=== PATIENT | male | born 1955 ===

== ENCOUNTER 2017-02-16 07:22 | Inpatient (IN) | payer MEDICARE ==
[2017-02-16] MEDS ORDERED: Insulin Detemir 100 Units/ml Inj SC STA (08:57)
[2017-02-16] MEDS ORDERED: Insulin Detemir 100 Units/ml Inj SC ONE (09:00)
[2017-02-16 09:27] VITALS: BMI 30.9
[2017-02-16] MEDS ORDERED: Propofol 10 mg/ml Inj (20 ML) ONE (09:44)
[2017-02-16] MEDS ORDERED: Succinylcholine 200 mg/10 ml Inj IV ONE (09:44)
[2017-02-16] MEDS ORDERED: EPINEPHrine 1 mg/ml (1:1000) Inj ONE ×2 (09:54→12:28)
[2017-02-16] MEDS ORDERED: Bupivacaine 0.5% Inj(30mL) ONE ×2 (09:54→12:28)
[2017-02-16] MEDS ORDERED: Morphine 1 mg/ml preservative-free Inj(Duramorph) ONE (09:54)
[2017-02-16] MEDS ORDERED: Sodium Chloride 0.9% 20 ML IV ONE (09:55)
[2017-02-16] MEDS ORDERED: Sodium Bicarbonate 4.2% Inj (Infant) ONE (09:55)
[2017-02-16] MEDS ORDERED: Midazolam 2 MG/2 ML VIAL ONE (10:20)
[2017-02-16] MEDS ORDERED: Rocuronium 10 mg/ml (5 ml) ONE (10:20)
[2017-02-16] MEDS ORDERED: Dexamethasone 4 mg/1 ml ONE (10:21)
[2017-02-16] MEDS ORDERED: Lidocaine 2% Jelly (Uro-Jet) ONE (10:25)
[2017-02-16] MEDS ORDERED: Albuterol HFA 90 mcg/actuation (8 g) ONE (10:27)
[2017-02-16] MEDS ORDERED: Lactated Ringer's 1,000 ML IV ONE ×2 (10:55→14:55)
[2017-02-16] MEDS ORDERED: Sodium Chloride 0.9% Inj (10mL) IV ONE (12:38)
[2017-02-16] MEDS ORDERED: EPINEPHrine 1 mg/ml (1:1000) Inj IV ONE (12:38)
[2017-02-16] MEDS ORDERED: Bupivacaine 0.5% 50 ML IJ ONE (12:38)
--- NOTE | 2017-02-16 13:13 | PCM.SURG1 ---
Surgeon's Initial Post Op Note - Surgeon's Notes Surgeon: Verónica Egan MD Purchase Analyst: AURELIA Helm Pre-Operative Diagnosis: Right Knee Osteoarthritis Operative Findings: see op report Post-Operative Diagnosis: same as pre-op dx Operation Performed: R TKR Specimen/Specimens Removed: Right knee bone and soft tissue Estimated Blood Loss: EBL {In ML}: 150 Date of Surgery/Procedure: 02/16/17 Time of Surgery/Procedure: 10:45
[2017-02-16] MEDS ORDERED: Oxycodone/Acetaminophen 5/325 mg Tab PO PRN (13:16)
[2017-02-16] MEDS ORDERED: Insulin Lispro (humaLOG) 100 Units/ml Inj SC STA (13:23)
[2017-02-16] MEDS: HYDROmorphone 0.5 mg/0.5 ml ISec IVP PRN ×5 (13:35→14:49)
[2017-02-16] MEDS: Insulin Regular 100 units/ml SC ONE ×2 (14:27→19:05)
--- NOTE | 2017-02-16 14:40 | RAD ---
PROCEDURE: Right Knee Radiographs. HISTORY: s/p RTKR COMPARISON: None. FINDINGS: BONES: Patient status post right total knee replacement with hardware in adequate apparent position. No subluxation or dislocation is appreciated with distal femoral and proximal tibial replacement hardware unremarkable appearing. Skin ascencion noted anteriorly with limited anterior knee postoperative changes noted. JOINTS: Status post total knee replacement. JOINT EFFUSION: None. OTHER FINDINGS: None. IMPRESSION: Status post total knee replacement hardware with limited postoperative change identified predominating anteriorly. No acute fracture or dislocation.
[2017-02-16] MEDS ORDERED: Albuterol 0.083% Inhal Sol (2.5 mg/3 mL) UD IH PRN (14:51)
[2017-02-16] MEDS ORDERED: ceFAZolin 1 GM in Sodium Chloride 0.9% 100 ML IVPB ONE (19:00)
[2017-02-16] MEDS: Lactated Ringer's 1,000 ML IV SCH ×3 (19:08→23:10)
[2017-02-16] MEDS: oxyCODONE 10 mg ER Tab (oxyCONTIN) PO SCH (21:29)
[2017-02-17] MEDS ORDERED: ceFAZolin 1 GM in Sodium Chloride 0.9% 100 ML IVPB ONE (03:00)
[2017-02-17 07:32] LABS: BLOOD UREA NITROGEN 17 mg/dl (9-20); CALCIUM 9.1 mg/dL (8.4-10.2); GFR AFRICAN-AMERICAN > 60; GFR NON-AFRICAN AMERICAN > 60
[2017-02-17 07:33] LABS: BASO % 0.1 % (0.0-2.0); EOS # 0.1 K/uL (0.0-0.7); EOS % 0.7 % (0.0-4.0); HEMOGLOBIN 12.7 g/dL (12.0-18.0); LYMPH # 1.8 K/uL (1.0-4.3); LYMPH % 23.9 % (20.0-40.0); MEAN CELL VOLUME 88.1 fl (80.0-94.0); MEAN CORPUSCULAR HGB CONC 34.1 g/dL (33.0-37.0); MEAN PLATELET VOLUME 8.9 fl (7.2-11.7); MONO # 0.8 K/uL (0.0-0.8); MONO % 10.2 % (0.0-10.0); NEUT # 4.9 K/uL (1.8-7.0); NEUT % 65.1 % (50.0-75.0); NRBC % 0.1 % (0.0-0.0); RBC 4.24 Mil/uL (4.40-5.90); RED CELL DISTRIBUTION WIDTH 14.2 % (11.5-14.5); WHITE BLOOD COUNT 7.6 K/uL (4.8-10.8)
--- NOTE | 2017-02-17 08:58 | CP.PCM.PN ---
Subjective - Date & Time of Evaluation Date of Evaluation: 02/17/17 Time of Evaluation: 08:30 - Subjective Subjective: S/P RTKR POD#1 Pt seen and examined at bedside, comfortable in bed Pt c/o mild right knee pain, currently well controlled with pain meds Pt denies any SOB, chest pain, N/V/D, numbness/tingling RLE Objective - Vital Signs/Intake and Output Vital Signs (last 24 hours): Temp Pulse Resp BP Pulse Ox 98.3 F 73 20 100/63 97 02/17/17 07:47 02/17/17 07:47 02/17/17 07:47 02/17/17 07:47 02/17/17 07:47 - Medications Medications: Current Medications Acetaminophen (Tylenol 325mg Tab) 325 mg PO Q4 PRN PRN Reason: pain1-3 Albuterol Sulfate (Albuterol 0.083% Inhal Angelica (2.5 Mg/3 Ml) Ud) 2.5 mg IH Q6 PRN PRN Reason: Shortness of Breath Celecoxib (Celebrex) 200 mg PO Q12 [facility] Last Admin: 02/16/17 21:29 Dose: 200 mg Docusate Sodium (Colace) 100 mg PO TID [facility] Last Admin: 02/16/17 19:06 Dose: 100 mg Enoxaparin Sodium (Lovenox) 30 mg SC Q12 [facility] PRN Reason: Protocol Escitalopram Oxalate (Lexapro) 20 mg PO DAILY [facility] Lactated Ringer's (Lactated Ringer's) 1,000 mls @ 100 mls/hr IV .Q10H [facility] Last Admin: 02/16/17 23:10 Dose: Not Given Insulin Detemir (Levemir) 5 units SC QAM [facility] Ketorolac Tromethamine (Toradol) 15 mg IM Q8 [facility] Stop: 03/02/17 19:00 Last Admin: 02/17/17 01:24 Dose: 15 mg Metformin HCl (Glucophage) 500 mg PO ACD [facility] Last Admin: 02/16/17 20:35 Dose: 500 mg Metformin HCl (Glucophage) 1,000 mg PO DAILY [facility] Metoprolol Tartrate (Lopressor) 25 mg PO DAILY [facility] Oxycodone HCl (Oxycontin Extended Release Tab) 10 mg PO Q12 [facility] Stop: 03/02/17 21:01 Last Admin: 02/16/17 21:29 Dose: 10 mg Oxycodone/Acetaminophen (Percocet 5/325 Mg Tab) 1 tab PO Q4 PRN PRN Reason: pain4-6 Stop: 02/19/17 13:17 Pantoprazole Sodium (Protonix Ec Tab) 40 mg PO QAM [facility] Sitagliptin Phosphate (Januvia) 50 mg PO DAILY [facility] Valsartan (Diovan) 80 mg PO DAILY [facility] - Labs Labs: 02/17/17 06:35 02/17/17 06:35 - Constitutional Appears: Well, No Acute Distress - Respiratory Exam Respiratory Exam: Clear to Ausculation Bilateral, NORMAL BREATHING PATTERN - Cardiovascular Exam Cardiovascular Exam: REGULAR RHYTHM, RRR - Extremities Exam Additional comments: RLE: Knee dressing C/D/I Calves soft and compressible, +TTP right calf, no TTP left calf N/V intact distally Distal pulses wnl No foot drop Assessment and Plan - Assessment and Plan (Free Text) Assessment: 61 yo M s/p RTKR POD#1 Plan: 61 yo M s/p RTKR POD#1 Pain Control Abx to be stopped within 24hrs post op DVT ppx- start lovenox today B/L LE US to r/o DVT RLE Incentive Spirometer PT/OT WBAT RLE F/U labs Discussed with Dr. Egan
[2017-02-17] MEDS ORDERED: Patient's Own Med (Sitagliptin Phos/Metformin Hcl [Janumet 50-1,000 Mg Tablet] 1 TAB) PO SCH (09:00)
--- NOTE | 2017-02-17 09:14 | CP.PCM.CON ---
History of Present Illness - History of Present Illness History of Present Illness: 61 y/o male with PMHx of HTN, DM type admitted to [facility] yesterday after right total knee replacement by Dr. Egan. Patient is s/p RTKR POD #1. Patient states that pain is well controlled with pain medications. Denies chest pain, SOB, N/V, abdominal pain. Patient is passing flatus, but has not had yet a bowel movements. Tolerating PO. Review of Systems - Review of Systems All systems: reviewed and no additional remarkable complaints except Past Patient History - Infectious Disease Hx of Infectious Diseases: None - Past Medical History & Family History Past Medical History?: Yes - Past Social History Smoking Status: Never Smoked - CARDIAC Hx Cardiac Disorders: Yes Hx Hypercholesterolemia: Yes Hx Hypertension: Yes - PULMONARY Hx Respiratory Disorders: No Hx Asthma: Yes Hx Bronchitis: Yes Hx Chronic Obstructive Pulmonary Disease (COPD): Yes - NEUROLOGICAL Hx Neurological Disorder: No Hx Paralysis: No - HEENT Hx HEENT Problems: No - RENAL Hx Chronic Kidney Disease: No - ENDOCRINE/METABOLIC Hx Endocrine Disorders: Yes Hx Diabetes Mellitus Type 2: Yes - HEMATOLOGICAL/ONCOLOGICAL Hx Blood Disorders: No Hx Blood Transfusions: No - INTEGUMENTARY Hx Dermatological Problems: No - MUSCULOSKELETAL/RHEUMATOLOGICAL Hx Musculoskeletal Disorders: Yes Hx Arthritis: Yes Hx Falls: No Hx Osteoarthritis: Yes - GASTROINTESTINAL Hx Gastrointestinal Disorders: Yes Other/Comment: [email or web address] - GENITOURINARY/GYNECOLOGICAL Hx Genitourinary Disorders: No Other/Comment: 06/2016 circumcision - PSYCHIATRIC Hx Emotional Abuse: No Hx Physical Abuse: No - SURGICAL HISTORY Hx Surgeries: Yes 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) Hx Herniorrhaphy: Yes (UMBILICAL HERNIA) Hx Joint Replacement: Yes (LEFT TOTAL KNEE REPLACEMENT 2013) Hx Orthopedic Surgery: Yes (left knee replacement) Other/Comment: RIGHT 5TH FINGER AMPUTED - ANESTHESIA Hx Anesthesia: Yes Hx Anesthesia Reactions: No Hx Malignant Hyperthermia: No Has any member of the family had a problem w/ anesthesia?: No Meds Allergies/Adverse Reactions: Allergies Allergy/AdvReac Type Severity Reaction Status Date / Time No Known Allergies Allergy Verified 06/29/16 00:49 - Medications Medications: Current Medications Acetaminophen (Tylenol 325mg Tab) 325 mg PO Q4 PRN PRN Reason: pain1-3 Albuterol Sulfate (Albuterol 0.083% Inhal Angelica (2.5 Mg/3 Ml) Ud) 2.5 mg IH Q6 PRN PRN Reason: Shortness of Breath Celecoxib (Celebrex) 200 mg PO Q12 [facility] Last Admin: 02/16/17 21:29 Dose: 200 mg Docusate Sodium (Colace) 100 mg PO TID [facility] Last Admin: 02/16/17 19:06 Dose: 100 mg Enoxaparin Sodium (Lovenox) 30 mg SC Q12 [facility] PRN Reason: Protocol Escitalopram Oxalate (Lexapro) 20 mg PO DAILY [facility] Lactated Ringer's (Lactated Ringer's) 1,000 mls @ 100 mls/hr IV .Q10H [facility] Last Admin: 02/16/17 23:10 Dose: Not Given Insulin Detemir (Levemir) 5 units SC QAM [facility] Ketorolac Tromethamine (Toradol) 15 mg IM Q8 [facility] Stop: 03/02/17 19:00 Last Admin: 02/17/17 01:24 Dose: 15 mg Metformin HCl (Glucophage) 500 mg PO ACD [facility] Last Admin: 02/16/17 20:35 Dose: 500 mg Metformin HCl (Glucophage) 1,000 mg PO DAILY [facility] Metoprolol Tartrate (Lopressor) 25 mg PO DAILY [facility] Oxycodone HCl (Oxycontin Extended Release Tab) 10 mg PO Q12 [facility] Stop: 03/02/17 21:01 Last Admin: 02/16/17 21:29 Dose: 10 mg Oxycodone/Acetaminophen (Percocet 5/325 Mg Tab) 1 tab PO Q4 PRN PRN Reason: pain4-6 Stop: 02/19/17 13:17 Pantoprazole Sodium (Protonix Ec Tab) 40 mg PO QAM [facility] Sitagliptin Phosphate (Januvia) 50 mg PO DAILY [facility] Valsartan (Diovan) 80 mg PO DAILY [facility] Physical Exam - Constitutional Appears: No Acute Distress - Eye Exam Eye Exam: Normal appearance - ENT Exam ENT Exam: Mucous Membranes Moist - Respiratory Exam Respiratory Exam: Clear to Auscultation Bilateral, NORMAL BREATHING PATTERN - Cardiovascular Exam Cardiovascular Exam: REGULAR RHYTHM, +S1, +S2 - GI/Abdominal Exam GI & Abdominal Exam: Normal Bowel Sounds, Soft. absent: Guarding, Rigid, Tenderness - Extremities Exam Additional comments: Knee dressing C/D/I Calves soft and compressible, +TTP right calf, no TTP left calf N/V intact distally Distal pulses wnl - Neurological Exam Neurological exam: Alert, Oriented x3 - Psychiatric Exam Psychiatric exam: Normal Affect, Normal Mood - Skin Skin Exam: Dry, Intact, Normal Color Results - Vital Signs Recent Vital Signs: Last Vital Signs Temp 98.3 F 02/17/17 07:47 Pulse 73 02/17/17 07:47 Resp 20 02/17/17 07:47 BP 100/63 02/17/17 07:47 Pulse Ox 97 02/17/17 07:47 - Labs Result Diagrams: 02/17/17 06:35 02/17/17 06:35 Labs: Laboratory Results - last 24 hr 02/16/17 02/16/17 02/16/17 07:45 09:45 13:14 WBC RBC Hgb Hct MCV MCH MCHC RDW Plt Count MPV Neut % (Auto) Lymph % (Auto) [place] % (Auto) Eos % (Auto) Baso % (Auto) Neut # Lymph # [place] # Eos # Baso # Sodium Potassium Chloride Carbon Dioxide Anion Gap BUN Creatinine Est GFR ( Amer) Est GFR (Non-Af Amer) POC Glucose (mg/dL) 248 H 250 H Random Glucose Calcium Blood Type A POSITIVE Antibody Screen Negative 02/16/17 02/17/17 02/17/17 21:19 06:35 06:35 WBC 7.6 RBC 4.24 L Hgb 12.7 Hct 37.3 MCV 88.1 MCH 30.0 MCHC 34.1 RDW 14.2 Plt Count 135 MPV 8.9 Neut % (Auto) 65.1 Lymph % (Auto) 23.9 [place] % (Auto) 10.2 H Eos % (Auto) 0.7 Baso % (Auto) 0.1 Neut # 4.9 Lymph # 1.8 [place] # 0.8 Eos # 0.1 Baso # 0.0 Sodium 138 Potassium 4.0 Chloride 104 Carbon Dioxide 25 Anion Gap 12 BUN 17 Creatinine 1.1 Est GFR ( Amer) > 60 Est GFR (Non-Af Amer) > 60 POC Glucose (mg/dL) 308 H Random Glucose 226 H Calcium 9.1 Blood Type Antibody Screen 02/17/17 06:41 WBC RBC Hgb Hct MCV MCH MCHC RDW Plt Count MPV Neut % (Auto) Lymph % (Auto) [place] % (Auto) Eos % (Auto) Baso % (Auto) Neut # Lymph # [place] # Eos # Baso # Sodium Potassium Chloride Carbon Dioxide Anion Gap BUN Creatinine Est GFR ( Amer) Est GFR (Non-Af Amer) POC Glucose (mg/dL) 239 H Random Glucose Calcium Blood Type Antibody Screen Assessment & Plan - Assessment and Plan (Free Text) Assessment: S/P RTKR POD #1 Plan: S/P RTKR POD #1 c/w Pain Control discontinued Abx within 24hrs post op f/u B/L LE US to r/o DVT RLE Incentive Spirometer PT evaluation F/U labs Hypertension C/w current management Diabetes Mellitus type 2 c/w home medications DVT prophylaxis consider start DVT ppx with lovenox today - Date & Time Date: 02/17/17 Time: 08:25
[2017-02-17] MEDS: Pantoprazole 40 mg EC Tab PO SCH (10:15)
[2017-02-17] MEDS: Insulin Detemir 100 Units/ml Inj SC SCH (10:21)
[2017-02-17] MEDS: oxyCODONE 10 mg ER Tab (oxyCONTIN) PO SCH ×2 (11:29→21:27)
[2017-02-17] MEDS: Lactated Ringer's 1,000 ML IV SCH ×2 (11:30→20:08)
--- NOTE | 2017-02-17 11:36 | US ---
PROCEDURE: Bilateral lower extremity venous duplex Doppler. HISTORY: pain in R calf; S/P R TKR 02/16/2017 COMPARISON: None available. TECHNIQUE: Bilateral common femoral, superficial femoral, popliteal and posterior tibial veins were evaluated. Flow was assessed with color Doppler, compressibility, assessment of phasic flow and augmentation response. FINDINGS: COMMON FEMORAL VEIN: Right CFV: Unremarkable. Left CFV: Unremarkable. SUPERFICIAL FEMORAL VEIN: Right SFV: Unremarkable. Left SFV: Unremarkable. POPLITEAL VEIN: Right Popliteal: Unremarkable. Left Popliteal: Unremarkable. POSTERIOR TIBIAL VEIN: Right PTV: Unremarkable. Left PTV: Unremarkable. OTHER FINDINGS: None. IMPRESSION: No evidence of deep venous thrombosis.
[2017-02-17] MEDS: Enoxaparin 30 mg Syringe SC SCH ×2 (14:05→21:57)
[2017-02-18 07:09] LABS: BASO % 0.3 % (0.0-2.0); EOS # 0.1 K/uL (0.0-0.7); EOS % 1.7 % (0.0-4.0); HEMOGLOBIN 11.3 g/dL (12.0-18.0); LYMPH # 1.2 K/uL (1.0-4.3); LYMPH % 23.6 % (20.0-40.0); MEAN CELL VOLUME 88.2 fl (80.0-94.0); MEAN CORPUSCULAR HEMOGLOBIN 29.6 pg (27.0-31.0); MEAN CORPUSCULAR HGB CONC 33.5 g/dL (33.0-37.0); MEAN PLATELET VOLUME 8.7 fl (7.2-11.7); MONO # 0.7 K/uL (0.0-0.8); MONO % 13.8 % (0.0-10.0); NEUT # 3.2 K/uL (1.8-7.0); NEUT % 60.6 % (50.0-75.0); RBC 3.81 Mil/uL (4.40-5.90); RED CELL DISTRIBUTION WIDTH 14.1 % (11.5-14.5); WHITE BLOOD COUNT 5.3 K/uL (4.8-10.8)
[2017-02-18 07:21] LABS: BLOOD UREA NITROGEN 13 mg/dl (9-20); CALCIUM 8.8 mg/dL (8.4-10.2); GFR AFRICAN-AMERICAN > 60; GFR NON-AFRICAN AMERICAN > 60
[2017-02-18] MEDS: Enoxaparin 30 mg Syringe SC SCH ×2 (08:30→21:56)
[2017-02-18] MEDS: Pantoprazole 40 mg EC Tab PO SCH (08:33)
[2017-02-18] MEDS: Insulin Detemir 100 Units/ml Inj SC SCH (08:34)
[2017-02-18] MEDS: Lactated Ringer's 1,000 ML IV SCH ×2 (08:38→15:59)
[2017-02-18] MEDS: oxyCODONE 10 mg ER Tab (oxyCONTIN) PO SCH ×2 (08:47→21:56)
[2017-02-18 15:56] VITALS: O2SAT 97
[2017-02-19 01:02] VITALS: RESP 20
--- NOTE | 2017-02-19 06:57 | CP.PCM.DIS ---
Provider - Provider Date of Admission: 02/16/17 13:19 Attending physician: Terry Guzman MD Primary care physician: Adi Rao MD Time Spent in preparation of Discharge (in minutes): 30 Diagnosis - Discharge Diagnosis (1) Status post total right knee replacement Status: Acute Comment: POD #2. c/w pain control. c/w DVT prophylaxis. Transfer to TCU (2) Hypertension Status: Chronic Priority: Medium (3) Diabetes type 2, controlled Status: Chronic Priority: Medium Hospital Course - Lab Results Lab Results: Most Recent Lab Values WBC 5.3 K/uL (4.8-10.8) 02/18/17 06:25 RBC 3.81 Mil/uL (4.40-5.90) L 02/18/17 06:25 Hgb 11.3 g/dL (12.0-18.0) L 02/18/17 06:25 Hct 33.6 % (35.0-51.0) L 02/18/17 06:25 MCV 88.2 fl (80.0-94.0) 02/18/17 06:25 MCH 29.6 pg (27.0-31.0) 02/18/17 06:25 MCHC 33.5 g/dL (33.0-37.0) 02/18/17 06:25 RDW 14.1 % (11.5-14.5) 02/18/17 06:25 Plt Count 119 K/uL (130-400) L 02/18/17 06:25 MPV 8.7 fl (7.2-11.7) 02/18/17 06:25 Neut % (Auto) 60.6 % (50.0-75.0) 02/18/17 06:25 Lymph % (Auto) 23.6 % (20.0-40.0) 02/18/17 06:25 Carson % (Auto) 13.8 % (0.0-10.0) H 02/18/17 06:25 Eos % (Auto) 1.7 % (0.0-4.0) 02/18/17 06:25 Baso % (Auto) 0.3 % (0.0-2.0) 02/18/17 06:25 Neut # 3.2 K/uL (1.8-7.0) 02/18/17 06:25 Lymph # 1.2 K/uL (1.0-4.3) 02/18/17 06:25 Carson # 0.7 K/uL (0.0-0.8) 02/18/17 06:25 Eos # 0.1 K/uL (0.0-0.7) 02/18/17 06:25 Baso # 0.0 K/uL (0.0-0.2) 02/18/17 06:25 Sodium 137 mmol/l (132-148) 02/18/17 06:25 Potassium 3.8 MMOL/L (3.6-5.0) 02/18/17 06:25 Chloride 103 mmol/L (98-107) 02/18/17 06:25 Carbon Dioxide 27 mmol/L (22-30) 02/18/17 06:25 Anion Gap 10 (10-20) 02/18/17 06:25 BUN 13 mg/dl (9-20) 02/18/17 06:25 Creatinine 1.0 mg/dL (0.8-1.5) 02/18/17 06:25 Est GFR ( Amer) > 60 02/18/17 06:25 Est GFR (Non-Af Amer) > 60 02/18/17 06:25 POC Glucose (mg/dL) 269 mg/dL (65-110) H 02/19/17 05:09 Random Glucose 274 mg/dL (75-110) H 02/18/17 06:25 Calcium 8.8 mg/dL (8.4-10.2) 02/18/17 06:25 Blood Type A POSITIVE 02/16/17 07:45 Antibody Screen Negative 02/16/17 07:45 BBK History Checked Patient has bt 02/16/17 07:45 - Hospital Course Hospital Course: S/P RTKR doing well in POD #2 Transfer to TCU to c/w rehabilitation - Date & Time of H&P Date of H&P: 02/16/17 Time of H&P: 13:00 Discharge Exam - ENT Exam ENT Exam: Mucous Membranes Moist - Respiratory Exam Respiratory Exam: Clear to PA & Lateral, NORMAL BREATHING PATTERN - Cardiovascular Exam Cardiovascular Exam: REGULAR RHYTHM, +S1, +S2 - GI/Abdominal Exam GI & Abdominal Exam: Normal Bowel Sounds, Soft. absent: Guarding, Rigid, Tenderness - Extremities Exam Extremities exam: normal inspection Additional comments: no edema, no calf tenderness - Neurological Exam Neurological exam: Alert, Oriented x3 - Psychiatric Exam Psychiatric exam: Normal Affect, Normal Mood - Skin Skin Exam: Dry, Intact, Normal Color Discharge Plan - Follow Up Plan Condition: GOOD Disposition: REHAB FACILITY/REHAB UNIT Instructions: Joint Replacement Surgery (DC) Additional Instructions: pt. cleared for d/c to TCU today by and cont. PT/OT cont. current meds Referrals: Verónica Egan MD [Staff Provider] - Terry Guzman MD [Staff Provider] - Adi Rao MD [Primary Care Provider] -
[2017-02-19 07:33] LABS: BASO % 0.3 % (0.0-2.0); EOS # 0.1 K/uL (0.0-0.7); EOS % 2.8 % (0.0-4.0); HEMOGLOBIN 9.8 g/dL (12.0-18.0); LYMPH # 1.3 K/uL (1.0-4.3); LYMPH % 25.5 % (20.0-40.0); MEAN CELL VOLUME 88.1 fl (80.0-94.0); MEAN CORPUSCULAR HEMOGLOBIN 30.4 pg (27.0-31.0); MEAN CORPUSCULAR HGB CONC 34.6 g/dL (33.0-37.0); MEAN PLATELET VOLUME 8.9 fl (7.2-11.7); MONO # 0.7 K/uL (0.0-0.8); NEUT # 2.9 K/uL (1.8-7.0); NEUT % 58.4 % (50.0-75.0); NRBC % 0.1 % (0.0-0.0); RBC 3.21 Mil/uL (4.40-5.90); RED CELL DISTRIBUTION WIDTH 14.1 % (11.5-14.5)
[2017-02-19 07:34] LABS: BLOOD UREA NITROGEN 19 mg/dl (9-20); GFR AFRICAN-AMERICAN > 60; GFR NON-AFRICAN AMERICAN > 60
[2017-02-19 07:36] VITALS: BP 97/65; PULSE 82; TEMP 97.9
[2017-02-19] MEDS: Enoxaparin 30 mg Syringe SC SCH (08:32)
[2017-02-19] MEDS: Lactated Ringer's 1,000 ML IV SCH (08:37)
[2017-02-19] MEDS: Insulin Detemir 100 Units/ml Inj SC SCH (08:40)
[2017-02-19] MEDS: Pantoprazole 40 mg EC Tab PO SCH (08:46)
[2017-02-19] MEDS: oxyCODONE 10 mg ER Tab (oxyCONTIN) PO SCH (08:47)
--- NOTE | 2017-02-19 09:18 | CP.PCM.PN ---
Subjective - Date & Time of Evaluation Date of Evaluation: 02/19/17 Time of Evaluation: 08:20 - Subjective Subjective: S/P RTKR POD#3 Pt seen and Objective - Vital Signs/Intake and Output Vital Signs (last 24 hours): Temp Pulse Resp BP Pulse Ox 97.9 F 82 20 97/65 L 97 02/19/17 07:35 02/19/17 08:34 02/19/17 07:35 02/19/17 08:34 02/19/17 07:35 - Medications Medications: Current Medications Acetaminophen (Tylenol 325mg Tab) 325 mg PO Q4 PRN PRN Reason: pain1-3 Albuterol Sulfate (Albuterol 0.083% Inhal Angelica (2.5 Mg/3 Ml) Ud) 2.5 mg IH Q6 PRN PRN Reason: Shortness of Breath Celecoxib (Celebrex) 200 mg PO Q12 [facility] Last Admin: 02/19/17 08:33 Dose: 200 mg Docusate Sodium (Colace) 100 mg PO TID [facility] Last Admin: 02/19/17 08:35 Dose: 100 mg Enoxaparin Sodium (Lovenox) 30 mg SC Q12 [facility] PRN Reason: Protocol Last Admin: 02/19/17 08:32 Dose: 30 mg Escitalopram Oxalate (Lexapro) 20 mg PO DAILY [facility] Last Admin: 02/19/17 08:33 Dose: 20 mg Lactated Ringer's (Lactated Ringer's) 1,000 mls @ 100 mls/hr IV .Q10H [facility] Last Admin: 02/19/17 08:37 Dose: Not Given Insulin Detemir (Levemir) 5 units SC QAM [facility] Last Admin: 02/19/17 08:40 Dose: 5 units Metformin HCl (Glucophage) 500 mg PO ACD [facility] Last Admin: 02/18/17 16:08 Dose: 500 mg Metformin HCl (Glucophage) 1,000 mg PO DAILY [facility] Last Admin: 02/19/17 08:36 Dose: 1,000 mg Metoprolol Tartrate (Lopressor) 25 mg PO DAILY [facility] Last Admin: 02/19/17 08:34 Dose: 25 mg Oxycodone HCl (Oxycontin Extended Release Tab) 10 mg PO Q12 [facility] Stop: 03/02/17 21:01 Last Admin: 02/19/17 08:47 Dose: 10 mg Oxycodone/Acetaminophen (Percocet 5/325 Mg Tab) 1 tab PO Q4 PRN PRN Reason: pain4-6 Stop: 02/19/17 13:17 Last Admin: 02/18/17 20:05 Dose: 1 tab Pantoprazole Sodium (Protonix Ec Tab) 40 mg PO QAM [facility] Last Admin: 02/19/17 08:46 Dose: 40 mg Sitagliptin Phosphate (Januvia) 50 mg PO DAILY [facility] Last Admin: 02/19/17 08:33 Dose: 50 mg Valsartan (Diovan) 80 mg PO DAILY [facility] Last Admin: 02/19/17 08:36 Dose: 80 mg - Labs Labs: 02/19/17 06:45 02/19/17 06:45
--- NOTE | 2017-02-19 20:42 | OP ---
PROCEDURE DATE: 02/16/2017 PREOPERATIVE DIAGNOSIS: Right knee osteoarthritis. POSTOPERATIVE DIAGNOSIS: Right knee osteoarthritis. PROCEDURE: Right total knee replacement. CHARGE MANAGER: Ramana Brenner PA-C IMPLANTS: [employer] total knee system size 3 tibial, size 3 femur, 9 mm polyethylene insert, 32 mm patella button. ANESTHESIA TYPE: General. ESTIMATED BLOOD LOSS: 50 mL. COMPLICATIONS: None. HISTORY: The patient with prolonged history of right knee pain progressively getting worse despite extensive conservative management, which included activity modification, injections, anti-inflammatory modification, and physical therapy. X-rays had revealed advanced arthritis. The patient was indicated for total knee replacement due to continued pain and limited mobility. I had a detailed discussion with the patient in the office explaining the nature of the surgery, alternatives of surgery, risks and benefits, rehabilitation protocol, and surgical markings. Risks of surgery include but not limited to continued pain, lack of motion, infection, vascular injury, DVT/PE, nerve injury including peroneal nerve dysfunction, reflex sympathetic dystrophy, compartment syndrome, unforeseen medical and/or anesthesia complications, limb loss, and even . The patient expressed an understanding of the risks and possible benefits of the procedure, and is also aware of the alternatives to surgery. PROCEDURE: On the day of surgery, the patient was admitted to preoperative holding area. A laterality sheet was completed confirming the correct operative site. The correct surgical knee was marked in the holding area and informed consent was signed from the patient. Once again, I reviewed the risks and benefits of the surgery with the patient in detail. These risks include but are not limited to continued pain, lack of motion, infection, vascular injury, DVT/PE, nerve injury including peroneal nerve dysfunction, reflex sympathetic dystrophy, symptomatic hardware, need for further procedure and surgeries, instability, iatrogenic fractures, compartment syndrome, unforeseen medical and/or anesthesia complications, limb loss, and even . The patient expressed an understanding of the risks and possible benefits of the procedure, also aware of the alternatives to surgery and signed the informed consent. The patient was transported to the operating room and placed in the supine position, general anesthesia was obtained. Exam under anesthesia range of motion is 0-120 degrees, stable to varus and valgus stress. A padded tourniquet was applied to the patient's operative thigh and appropriate prophylactic antibiotics were given. The operative leg was draped and prepped in standard sterile manner. Timeout was completed confirming the patient's left knee to be the correct operative site. Using an Esmarch, the extremity was exsanguinated and tourniquet was inflated to 350 mmHg. The surgical incision markings were made using patella border, tibial tubercle, patella, and quadriceps tendon. Using a #10 blade, a midline incision was made. Skin dissection was taken until the prepatellar fascia was identified and the corners of the patellar tendon were marked for proper closure at the end of the procedure. Using a fresh #10 blade, a medial parapatellar arthrotomy was performed. The knee was exposed in the standard manner. The deep MCL was elevated for exposure, medial and lateral menisci were removed. ACL and PCL were also transected. The tibia was subluxed anteriorly. Planned tibial cut was made with power saw, using extramedullary guide, perpendicular to mechanical axis of the tibia. After the cut was made, the alignment was also checked and was found to be appropriate. Next, the knee was placed into 90 degrees of flexion. A drill hole was made within the femoral notch anterior to PCL insertion for placement of intramedullary femoral raven. Intramedullary femoral raven was inserted within the femoral canal and planned distal femoral cut was made. After the cut, knee was brought into full extension. Spacer blocks were used to check the extension balancing both in full extension and 30 degrees of flexion. It was found that a size 3 tibial baseplate and a size 9 mm trial spacer block allowed full extension with symmetric varus and valgus balancing. Next, we proceed with patella resurfacing. Patella width was found to size 15 trial spacer. Using the free-hand technique, the arthritic patellar surface was resected. Patella was sized using the guide and it was noted that [place] patella width was 26 and patella button size is 32 mm patella dome button would be appropriate for the patient. Next, the size of femoral component was determined using the posterior referencing guide. It was noted that a size 4 femur would be appropriate for this patient without causing any significant notching. A 4 x 1 cutting block was placed and flexion gap balancing was checked. The flexion gap was found to be symmetric to the extension gap. Anterior and posterior condyle, anterior and posterior chamfer cuts were made. Next, appropriate size box cut for femoral component was prepared using the guide. The femoral trial component was impacted onto the distal femur. Appropriate size tibial trial component was also placed on the cut surface of the tibia. Using the drill and punch, keel for tibial implant was prepared. Trial tibial tray was secured onto the tibia using pins. Different size trial polyethylene inserts were secured onto the trial tibial tray to critically assess the following parameters: Full range of motion, extension and flexion gap balancing, mid-flexion stability, anterior and posterior drawer, and patellar tracking. All parameter were found to be satisfactory with 9 mm polyethylene insert. All the trial components were removed. Implants were opened on the back table. Cement was mixed and we proceed with cement fixation of the implants. Tibial tray, femoral component and patellar dome button were secured with cement. Polyethylene insert was secured onto the tibial tray using locking mechanism. The knee was reduced and brought into full extension. Cement was allowed to harden until final component fixation. Knee was taken through the final range of motion for stability testing, and found to be satisfactory. During this procedure, I was assisted by Ramana Brenner PA-C, who assisted in positioning the patient on the operating room table as well as transferring the patient from the operating room table to the recovery room stretcher. In addition, Ramana Brenner PA-C assisted me during the actual operative procedure by positioning, protecting critical neurovascular structures, exposure of the joint, and proper positioning of the implants. The presence of Ramana Brenner PA-C, as my operative assistant distribution manager, was medically necessary to ensure the utmost safety of the patient in the pre, intra-, and postoperative periods. Verónica Egan MD
== END 2017-02-19 11:45 | DRG 470 ==
LOC: H.OPSURG 07:22 → H.MEDSURG1 13:19
PROVIDERS: ADMIT Family Medicine; ATTEND Family Medicine
PROC: 0SRC0J9 Replacement of Right Knee Joint with Synthetic Substitute, Cemented, Open Approach (ICD-10-PCS; principal; 2017-02-16 10:30)
DX: M17.11 Unilateral primary osteoarthritis, right knee (principal); I10 Essential (primary) hypertension; E11.9 Type 2 diabetes mellitus without complications; Z96.652 Presence of left artificial knee joint; J44.9 Chronic obstructive pulmonary disease, unspecified; E78.00 Pure hypercholesterolemia, unspecified

== ENCOUNTER 2017-02-18 11:23 | Inpatient (IN) | payer MEDICARE ==
[2017-02-19 11:39] VITALS: BMI 32.1
--- NOTE | 2017-02-19 13:38 | CP.PCM.PN ---
Subjective - Date & Time of Evaluation Date of Evaluation: 02/19/17 Time of Evaluation: 08:20 - Subjective Subjective: S/P RTKR POD#3 Pt seen and examined at bedside, comfortable in bed Pt c/o mild right knee pain Pt denies any SOB, chest pain, N/V/D Objective - Constitutional Appears: Well, No Acute Distress - Respiratory Exam Respiratory Exam: Clear to Ausculation Bilateral, NORMAL BREATHING PATTERN - Cardiovascular Exam Cardiovascular Exam: REGULAR RHYTHM, RRR - Extremities Exam Additional comments: RLE: Knee dressing C/D/I Calves soft and nontender b/l, calf tenderness on right improved from previous exam N/V intact distally Distal pulses wnl Assessment and Plan - Assessment and Plan (Free Text) Assessment: 61 yo M s/p RTKR POD#3 Plan: 61 yo M s/p RTKR POD#3 Pain Control DVT ppx PT/OT WBAT RLE Continue current management Discussed with Dr. Egan
[2017-02-19] MEDS ORDERED: Albuterol 0.083% Inhal Sol (2.5 mg/3 mL) UD IH PRN (15:29)
[2017-02-19 15:52] VITALS: RESP 20
[2017-02-19] MEDS: Oxycodone/Acetaminophen 5/325 mg Tab PO PRN (17:41)
--- NOTE | 2017-02-19 21:41 | CP.PCM.CON ---
History of Present Illness - History of Present Illness History of Present Illness: 61 year old male admitted to TCU after a right total knee replacement now for rehab Review of Systems - Musculoskeletal Musculoskeletal: Abnormal Gait, Arthralgias, Limited Range of Motion, Muscle Weakness Past Patient History - Infectious Disease Hx of Infectious Diseases: None - Past Medical History & Family History Past Medical History?: Yes - Past Social History Smoking Status: Never Smoked - CARDIAC Hx Cardiac Disorders: Yes Hx Hypercholesterolemia: Yes Hx Hypertension: Yes - PULMONARY Hx Respiratory Disorders: No Hx Asthma: Yes Hx Bronchitis: Yes Hx Chronic Obstructive Pulmonary Disease (COPD): Yes - NEUROLOGICAL Hx Neurological Disorder: No Hx Paralysis: No - HEENT Hx HEENT Problems: No - RENAL Hx Chronic Kidney Disease: No - ENDOCRINE/METABOLIC Hx Endocrine Disorders: Yes Hx Diabetes Mellitus Type 2: Yes - HEMATOLOGICAL/ONCOLOGICAL Hx Blood Disorders: No Hx AIDS: No Hx Blood Transfusions: No Hx Human Immunodeficiency Virus (HIV): No - INTEGUMENTARY Hx Dermatological Problems: No - MUSCULOSKELETAL/RHEUMATOLOGICAL Hx Musculoskeletal Disorders: Yes Hx Arthritis: Yes Hx Falls: No Hx Osteoarthritis: Yes - GASTROINTESTINAL Hx Gastrointestinal Disorders: Yes Other/Comment: [email or web address] - GENITOURINARY/GYNECOLOGICAL Hx Genitourinary Disorders: No Other/Comment: 06/2016 circumcision - PSYCHIATRIC Hx Emotional Abuse: No Hx Physical Abuse: No Hx Substance Use: No - SURGICAL HISTORY Hx Surgeries: Yes 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) Hx Herniorrhaphy: Yes (UMBILICAL HERNIA) Hx Joint Replacement: Yes (LEFT TOTAL KNEE REPLACEMENT 2013) Hx Orthopedic Surgery: Yes (left knee replacement) Other/Comment: RIGHT 5TH FINGER AMPUTED - ANESTHESIA Hx Anesthesia: Yes Hx Anesthesia Reactions: No Hx Malignant Hyperthermia: No Meds Allergies/Adverse Reactions: Allergies Allergy/AdvReac Type Severity Reaction Status Date / Time No Known Allergies Allergy Verified 02/19/17 11:38 - Medications Medications: Current Medications Acetaminophen (Tylenol 325mg Tab) 325 mg PO Q4 PRN PRN Reason: pain1-3 Albuterol Sulfate (Albuterol 0.083% Inhal Angelica (2.5 Mg/3 Ml) Ud) 2.5 mg IH Q6 PRN PRN Reason: Shortness of Breath Celecoxib (Celebrex) 200 mg PO Q12 [facility] Docusate Sodium (Colace) 200 mg PO DAILY [facility] Enoxaparin Sodium (Lovenox) 40 mg SC DAILY [facility] PRN Reason: Protocol Escitalopram Oxalate (Lexapro) 20 mg PO DAILY [facility] [place] Insulin Detemir (Levemir) 5 units SC QAM [facility] Metformin HCl (Glucophage) 500 mg PO ACD [facility] [place] Last Admin: 02/19/17 17:39 Dose: 500 mg Metoprolol Tartrate (Lopressor) 25 mg PO DAILY [facility] [place] Oxycodone HCl (Oxycontin Extended Release Tab) 10 mg PO Q12 [facility] [place] Stop: 02/22/17 21:01 Oxycodone/Acetaminophen (Percocet 5/325 Mg Tab) 1 tab PO Q4 PRN PRN Reason: pain4-6 Stop: 02/22/17 15:30 Last Admin: 02/19/17 17:41 Dose: 1 tab Pantoprazole Sodium (Protonix Ec Tab) 40 mg PO QAM [facility] [place] Sitagliptin Phosphate (Januvia) 50 mg PO DAILY [facility] [place] Valsartan (Diovan) 80 mg PO DAILY [facility] [place] Physical Exam - Head Exam Head Exam: ATRAUMATIC, NORMAL INSPECTION, NORMOCEPHALIC - Eye Exam Eye Exam: EOMI, Normal appearance - ENT Exam ENT Exam: Normal Exam - Neck Exam Neck exam: Positive for: Normal Inspection - Respiratory Exam Respiratory Exam: Clear to Auscultation Bilateral - Cardiovascular Exam Cardiovascular Exam: REGULAR RHYTHM - GI/Abdominal Exam GI & Abdominal Exam: Normal Bowel Sounds - Rectal Exam Rectal Exam: NORMAL INSPECTION - Exam External exam: NORMAL EXTERNAL EXAM Bimanual exam: NORMAL BIMANUAL EXAM - Extremities Exam Additional comments: right leg healing, TKR with dressing in place ROM limited in full flexion and extension Results - Vital Signs Recent Vital Signs: Last Vital Signs Temp 97.9 F 02/19/17 17:24 Pulse 84 02/19/17 17:24 Resp 20 02/19/17 17:24 BP 108/56 L 02/19/17 17:24 Pulse Ox 100 02/19/17 17:24 - Labs Labs: Laboratory Results - last 24 hr 02/19/17 02/19/17 16:16 20:58 POC Glucose (mg/dL) 160 H 193 H Assessment & Plan (1) Asthma exacerbation Status: Acute (2) Bronchitis Status: Acute (3) Hyperglycemia Status: Acute (4) Prophylactic measure Status: Acute (5) Status post total right knee replacement Assessment and Plan: plan for physical, occupational and rec therapy ROM of the knee balance, transfers and gait training Goals for Modified Independent Status: Acute (6) URI (upper respiratory infection) Status: Acute (7) Diabetes type 2, controlled Status: Chronic Priority: Medium (8) Hypertension Status: Chronic Priority: Medium
[2017-02-19] MEDS: oxyCODONE 10 mg ER Tab (oxyCONTIN) PO SCH (21:48)
[2017-02-20] MEDS: oxyCODONE 10 mg ER Tab (oxyCONTIN) PO SCH ×2 (09:05→20:08)
[2017-02-20] MEDS: Pantoprazole 40 mg EC Tab PO SCH (09:06)
[2017-02-20] MEDS: Insulin Detemir 100 Units/ml Inj SC SCH (09:07)
[2017-02-20] MEDS: Enoxaparin 40 mg Syringe SC SCH (09:08)
[2017-02-20] MEDS: Oxycodone/Acetaminophen 5/325 mg Tab PO PRN (12:20)
--- NOTE | 2017-02-20 20:18 | RAD ---
HISTORY: new admission COMPARISON: No prior. TECHNIQUE: Chest PA and lateral FINDINGS: LUNGS: No active pulmonary disease. PLEURA: No significant pleural effusion identified. No pneumothorax apparent. CARDIOVASCULAR: Normal. OSSEOUS STRUCTURES: No significant abnormalities. VISUALIZED UPPER ABDOMEN: Normal. OTHER FINDINGS: None. IMPRESSION: No active disease.
[2017-02-21] MEDS: Pantoprazole 40 mg EC Tab PO SCH (08:48)
[2017-02-21] MEDS: Insulin Detemir 100 Units/ml Inj SC SCH (08:49)
[2017-02-21] MEDS: oxyCODONE 10 mg ER Tab (oxyCONTIN) PO SCH ×2 (08:50→21:19)
[2017-02-21] MEDS: Enoxaparin 40 mg Syringe SC SCH (08:51)
--- NOTE | 2017-02-21 10:08 | CP.PCM.HP ---
History of Present Illness - History of Present Illness History of Present Illness: This is a 61 y/o male with hx of HTN and OA of he knees is admitted to TCU subacute rehab after a TKR right. Post op period was unremarkable. He was noted to have DM 2 postop and started on meds. He complains of slight pain on the op site and noted slight swelling of the right knee. He ambulates with a walker. Present on Admission - Present on Admission Any Indicators Present on Admission: No History of DVT/PE: No History of Uncontrolled Diabetes: Yes Urinary Catheter: No Decubitus Ulcer Present: No Review of Systems - Musculoskeletal Musculoskeletal: Abnormal Gait, Arthralgias Past Patient History - Infectious Disease Hx of Infectious Diseases: None - Past Medical History & Family History Past Medical History?: Yes - Past Social History Smoking Status: Never Smoked - CARDIAC Hx Cardiac Disorders: Yes Hx Hypercholesterolemia: Yes Hx Hypertension: Yes - PULMONARY Hx Respiratory Disorders: No Hx Asthma: Yes Hx Bronchitis: Yes Hx Chronic Obstructive Pulmonary Disease (COPD): Yes - NEUROLOGICAL Hx Neurological Disorder: No Hx Paralysis: No - HEENT Hx HEENT Problems: No - RENAL Hx Chronic Kidney Disease: No - ENDOCRINE/METABOLIC Hx Endocrine Disorders: Yes Hx Diabetes Mellitus Type 2: Yes - HEMATOLOGICAL/ONCOLOGICAL Hx Blood Disorders: No Hx AIDS: No Hx Blood Transfusions: No Hx Human Immunodeficiency Virus (HIV): No - INTEGUMENTARY Hx Dermatological Problems: No - MUSCULOSKELETAL/RHEUMATOLOGICAL Hx Musculoskeletal Disorders: Yes Hx Arthritis: Yes Hx Falls: No Hx Osteoarthritis: Yes - GASTROINTESTINAL Hx Gastrointestinal Disorders: Yes Other/Comment: [email or web address] - GENITOURINARY/GYNECOLOGICAL Hx Genitourinary Disorders: No Other/Comment: 06/2016 circumcision - PSYCHIATRIC Hx Emotional Abuse: No Hx Physical Abuse: No Hx Substance Use: No - SURGICAL HISTORY Hx Surgeries: Yes 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) Hx Herniorrhaphy: Yes (UMBILICAL HERNIA) Hx Joint Replacement: Yes (LEFT TOTAL KNEE REPLACEMENT 2013) Hx Orthopedic Surgery: Yes (left knee replacement) Other/Comment: RIGHT 5TH FINGER AMPUTED - ANESTHESIA Hx Anesthesia: Yes Hx Anesthesia Reactions: No Hx Malignant Hyperthermia: No Meds Allergies/Adverse Reactions: Allergies Allergy/AdvReac Type Severity Reaction Status Date / Time No Known Allergies Allergy Verified 02/19/17 11:38 Physical Exam - Head Exam Head Exam: NORMAL INSPECTION - Eye Exam Eye Exam: Normal appearance - ENT Exam ENT Exam: Mucous Membranes Moist - Respiratory Exam Respiratory Exam: Clear to Auscultation Bilateral - Cardiovascular Exam Cardiovascular Exam: REGULAR RHYTHM - GI/Abdominal Exam GI & Abdominal Exam: Normal Bowel Sounds - Neurological Exam Neurological exam: CN II-XII Intact, Oriented x3 Results - Vital Signs Recent Vital Signs: Last Vital Signs Temp 97.9 F 02/21/17 08:15 Pulse 88 02/21/17 08:49 Resp 20 02/21/17 08:15 BP 125/72 02/21/17 08:49 Pulse Ox 96 02/21/17 08:15 - Labs Labs: Laboratory Results - last 24 hr 02/20/17 02/20/17 02/20/17 10:53 17:03 21:07 POC Glucose (mg/dL) 249 H 209 H 205 H 02/21/17 05:42 POC Glucose (mg/dL) 171 H Assessment & Plan (1) Status post total right knee replacement Status: Acute (2) Gait abnormality Status: Acute (3) Diabetes type 2, controlled Status: Chronic Priority: Medium (4) Hypertension Status: Chronic Priority: Medium - Assessment and Plan (Free Text) Plan: Cont meds Pain meds start PT low dose metformin and januvia cont meds.
--- NOTE | 2017-02-21 10:13 | CP.PCM.PN ---
Subjective - Date & Time of Evaluation Date of Evaluation: 02/20/17 Time of Evaluation: 10:12 - Subjective Subjective: Patient is doing well with hie PT Noted slight swelling around right TKR wound Has no pain or fever. accucheck still elvated. Objective - Vital Signs/Intake and Output Vital Signs (last 24 hours): Temp Pulse Resp BP Pulse Ox 97.9 F 88 20 125/72 96 02/21/17 08:15 02/21/17 08:49 02/21/17 08:15 02/21/17 08:49 02/21/17 08:15 - Medications Medications: Current Medications Acetaminophen (Tylenol 325mg Tab) 325 mg PO Q4 PRN PRN Reason: pain1-3 Albuterol Sulfate (Albuterol 0.083% Inhal Angelica (2.5 Mg/3 Ml) Ud) 2.5 mg IH Q6 PRN PRN Reason: Shortness of Breath Celecoxib (Celebrex) 200 mg PO Q12 [facility] Last Admin: 02/21/17 08:48 Dose: 200 mg Docusate Sodium (Colace) 200 mg PO DAILY [facility] Last Admin: 02/21/17 08:48 Dose: 200 mg Enoxaparin Sodium (Lovenox) 40 mg SC DAILY [facility] PRN Reason: Protocol Last Admin: 02/21/17 08:51 Dose: 40 mg Escitalopram Oxalate (Lexapro) 20 mg PO DAILY [facility] Last Admin: 02/21/17 08:49 Dose: 20 mg Lactulose (Enulose) 20 gm PO BID PRN PRN Reason: Constipation Last Admin: 02/20/17 12:20 Dose: 20 gm Metformin HCl (Glucophage) 1,000 mg PO BIDWM [facility] Metoprolol Tartrate (Lopressor) 25 mg PO DAILY [facility] Last Admin: 02/21/17 08:49 Dose: 25 mg Oxycodone HCl (Oxycontin Extended Release Tab) 10 mg PO Q12 [facility] Stop: 02/22/17 21:01 Last Admin: 02/21/17 08:50 Dose: 10 mg Oxycodone/Acetaminophen (Percocet 5/325 Mg Tab) 1 tab PO Q4 PRN PRN Reason: pain4-6 Stop: 02/22/17 15:30 Last Admin: 02/20/17 12:20 Dose: 1 tab Pantoprazole Sodium (Protonix Ec Tab) 40 mg PO QAM [facility] Last Admin: 02/21/17 08:48 Dose: 40 mg Pioglitazone HCl (Actos) 15 mg PO DAILY [facility] Sitagliptin Phosphate (Januvia) 100 mg PO DAILY [facility] Valsartan (Diovan) 80 mg PO DAILY [facility] Last Admin: 02/21/17 08:49 Dose: 80 mg - Head Exam Head Exam: NORMAL INSPECTION - ENT Exam ENT Exam: Mucous Membranes Moist - Respiratory Exam Respiratory Exam: Clear to Ausculation Bilateral - Cardiovascular Exam Cardiovascular Exam: REGULAR RHYTHM - GI/Abdominal Exam GI & Abdominal Exam: Normal Bowel Sounds - Extremities Exam Additional comments: swelling around wound. - Neurological Exam Neurological Exam: CN II-XII Intact, Oriented x3 Assessment and Plan (1) Status post total right knee replacement Status: Acute (2) Gait abnormality Status: Acute (3) Diabetes type 2, controlled Status: Chronic (4) Hypertension Status: Chronic - Assessment and Plan (Free Text) Plan: Cont meds Cont tx Cont PT pain meds may need US of the right leg
--- NOTE | 2017-02-21 10:15 | CP.PCM.PN ---
Subjective - Date & Time of Evaluation Date of Evaluation: 02/21/17 Time of Evaluation: 10:14 - Subjective Subjective: Patient is doing well Tolerates CPM better Still with some swelling of the right leg Denies any calf pain Noted elevated FBS On Januvia 50 and metformin 500 bid Objective - Vital Signs/Intake and Output Vital Signs (last 24 hours): Temp Pulse Resp BP Pulse Ox 97.9 F 88 20 125/72 96 02/21/17 08:15 02/21/17 08:49 02/21/17 08:15 02/21/17 08:49 02/21/17 08:15 - Medications Medications: Current Medications Acetaminophen (Tylenol 325mg Tab) 325 mg PO Q4 PRN PRN Reason: pain1-3 Albuterol Sulfate (Albuterol 0.083% Inhal Angelica (2.5 Mg/3 Ml) Ud) 2.5 mg IH Q6 PRN PRN Reason: Shortness of Breath Celecoxib (Celebrex) 200 mg PO Q12 [facility] Last Admin: 02/21/17 08:48 Dose: 200 mg Docusate Sodium (Colace) 200 mg PO DAILY [facility] Last Admin: 02/21/17 08:48 Dose: 200 mg Enoxaparin Sodium (Lovenox) 40 mg SC DAILY [facility] PRN Reason: Protocol Last Admin: 02/21/17 08:51 Dose: 40 mg Escitalopram Oxalate (Lexapro) 20 mg PO DAILY [facility] Last Admin: 02/21/17 08:49 Dose: 20 mg Lactulose (Enulose) 20 gm PO BID PRN PRN Reason: Constipation Last Admin: 02/20/17 12:20 Dose: 20 gm Metformin HCl (Glucophage) 1,000 mg PO BIDWM [facility] Metoprolol Tartrate (Lopressor) 25 mg PO DAILY [facility] Last Admin: 02/21/17 08:49 Dose: 25 mg Oxycodone HCl (Oxycontin Extended Release Tab) 10 mg PO Q12 [facility] Stop: 02/22/17 21:01 Last Admin: 02/21/17 08:50 Dose: 10 mg Oxycodone/Acetaminophen (Percocet 5/325 Mg Tab) 1 tab PO Q4 PRN PRN Reason: pain4-6 Stop: 02/22/17 15:30 Last Admin: 02/20/17 12:20 Dose: 1 tab Pantoprazole Sodium (Protonix Ec Tab) 40 mg PO QAM [facility] Last Admin: 02/21/17 08:48 Dose: 40 mg Pioglitazone HCl (Actos) 15 mg PO DAILY [facility] Sitagliptin Phosphate (Januvia) 100 mg PO DAILY [facility] Valsartan (Diovan) 80 mg PO DAILY [facility] Last Admin: 02/21/17 08:49 Dose: 80 mg - Head Exam Head Exam: NORMAL INSPECTION - Eye Exam Eye Exam: Normal appearance - ENT Exam ENT Exam: Mucous Membranes Moist - Cardiovascular Exam Cardiovascular Exam: REGULAR RHYTHM - GI/Abdominal Exam GI & Abdominal Exam: Normal Bowel Sounds - Neurological Exam Neurological Exam: Awake, Oriented x3 - Psychiatric Exam Psychiatric exam: Normal Mood Assessment and Plan (1) Status post total right knee replacement Status: Acute (2) Gait abnormality Status: Acute (3) Diabetes type 2, controlled Status: Chronic (4) Hypertension Status: Chronic - Assessment and Plan (Free Text) Plan: Cont meds Con ttx Con tPT adjust meds Increase januvia and metformin add pioglitazione DC insulin.
[2017-02-21] MEDS: Oxycodone/Acetaminophen 5/325 mg Tab PO PRN ×2 (13:09→17:27)
--- NOTE | 2017-02-21 15:20 | CP.PCM.PN ---
Subjective - Date & Time of Evaluation Date of Evaluation: 02/20/17 Time of Evaluation: 12:30 - Subjective Subjective: no acute complaints of any knee pain, mild discomfort Objective - Vital Signs/Intake and Output Vital Signs (last 24 hours): Temp Pulse Resp BP Pulse Ox 97.9 F 88 20 125/72 96 02/21/17 08:15 02/21/17 08:49 02/21/17 08:15 02/21/17 08:49 02/21/17 08:15 - Medications Medications: Current Medications Acetaminophen (Tylenol 325mg Tab) 325 mg PO Q4 PRN PRN Reason: pain1-3 Albuterol Sulfate (Albuterol 0.083% Inhal Angelica (2.5 Mg/3 Ml) Ud) 2.5 mg IH Q6 PRN PRN Reason: Shortness of Breath Celecoxib (Celebrex) 200 mg PO Q12 [facility] Last Admin: 02/21/17 08:48 Dose: 200 mg Docusate Sodium (Colace) 200 mg PO DAILY [facility] Last Admin: 02/21/17 08:48 Dose: 200 mg Enoxaparin Sodium (Lovenox) 40 mg SC DAILY [facility] PRN Reason: Protocol Last Admin: 02/21/17 08:51 Dose: 40 mg Escitalopram Oxalate (Lexapro) 20 mg PO DAILY [facility] Last Admin: 02/21/17 08:49 Dose: 20 mg Lactulose (Enulose) 20 gm PO BID PRN PRN Reason: Constipation Last Admin: 02/20/17 12:20 Dose: 20 gm Metformin HCl (Glucophage) 1,000 mg PO BIDWM [facility] Last Admin: 02/21/17 13:13 Dose: 1,000 mg Metoprolol Tartrate (Lopressor) 25 mg PO DAILY [facility] Last Admin: 02/21/17 08:49 Dose: 25 mg Oxycodone HCl (Oxycontin Extended Release Tab) 10 mg PO Q12 [facility] Stop: 02/22/17 21:01 Last Admin: 02/21/17 08:50 Dose: 10 mg Oxycodone/Acetaminophen (Percocet 5/325 Mg Tab) 1 tab PO Q4 PRN PRN Reason: pain4-6 Stop: 02/22/17 15:30 Last Admin: 02/21/17 13:09 Dose: 1 tab Pantoprazole Sodium (Protonix Ec Tab) 40 mg PO QAM [facility] Last Admin: 02/21/17 08:48 Dose: 40 mg Pioglitazone HCl (Actos) 15 mg PO DAILY [facility] Last Admin: 02/21/17 13:09 Dose: 15 mg Sitagliptin Phosphate (Januvia) 100 mg PO DAILY [facility] Last Admin: 02/21/17 13:38 Dose: 100 mg Valsartan (Diovan) 80 mg PO DAILY [facility] Last Admin: 02/21/17 08:49 Dose: 80 mg - Head Exam Head Exam: ATRAUMATIC, NORMAL INSPECTION, NORMOCEPHALIC - Eye Exam Eye Exam: EOMI, Normal appearance Pupil Exam: NORMAL ACCOMODATION, PERRL - ENT Exam ENT Exam: Mucous Membranes Moist - Neck Exam Neck Exam: Normal Inspection - Respiratory Exam Respiratory Exam: Clear to Ausculation Bilateral, NORMAL BREATHING PATTERN - Cardiovascular Exam Cardiovascular Exam: REGULAR RHYTHM - GI/Abdominal Exam GI & Abdominal Exam: Normal Bowel Sounds - Rectal Exam Rectal Exam: NORMAL INSPECTION - Exam External exam: NORMAL EXTERNAL EXAM - Extremities Exam Extremities Exam: Normal Capillary Refill, Normal Inspection Additional comments: right leg weakness - Back Exam Back Exam: NORMAL INSPECTION - Neurological Exam Neurological Exam: Alert, Awake Neuro motor strength exam: Left Upper Extremity: 4, Right Upper Extremity: 4, Left Lower Extremity: 4, Right Lower Extremity: 3 - Psychiatric Exam Psychiatric exam: Normal Affect, Normal Mood Assessment and Plan (1) Asthma exacerbation Status: Acute (2) Bronchitis Status: Acute (3) Hyperglycemia Status: Acute (4) Prophylactic measure Status: Acute (5) Status post total right knee replacement Assessment & Plan: continue with quad exercises, improve Range of motion, transfers and gait trainign discussed wit the therapists Status: Acute (6) URI (upper respiratory infection) Status: Acute (7) Diabetes type 2, controlled Status: Chronic (8) Hypertension Status: Chronic
[2017-02-22] MEDS: oxyCODONE 10 mg ER Tab (oxyCONTIN) PO SCH ×2 (08:19→20:57)
[2017-02-22] MEDS: Pantoprazole 40 mg EC Tab PO SCH (08:21)
[2017-02-22] MEDS: Enoxaparin 40 mg Syringe SC SCH (08:22)
[2017-02-23] MEDS: Pantoprazole 40 mg EC Tab PO SCH (08:22)
[2017-02-23] MEDS: Enoxaparin 40 mg Syringe SC SCH (08:23)
[2017-02-23] MEDS: Oxycodone/Acetaminophen 5/325 mg Tab PO PRN ×2 (13:55→22:13)
[2017-02-23] MEDS ORDERED: Oxycodone/Acetaminophen 5/325 mg Tab PO SCH (16:00)
[2017-02-24] MEDS: Pantoprazole 40 mg EC Tab PO SCH (09:04)
[2017-02-24] MEDS: Oxycodone/Acetaminophen 5/325 mg Tab PO PRN (15:07)
--- NOTE | 2017-02-24 19:18 | CP.PCM.PN ---
Subjective - Date & Time of Evaluation Date of Evaluation: 02/22/17 Time of Evaluation: 15:00 - Subjective Subjective: no acute complaints at present Objective - Vital Signs/Intake and Output Vital Signs (last 24 hours): Temp Pulse Resp BP Pulse Ox 97.5 F L 84 20 116/62 97 02/24/17 18:16 02/24/17 18:16 02/24/17 18:16 02/24/17 18:16 02/24/17 18:16 - Medications Medications: Current Medications Acetaminophen (Tylenol 325mg Tab) 325 mg PO Q4 PRN PRN Reason: pain1-3 Albuterol Sulfate (Albuterol 0.083% Inhal Angelica (2.5 Mg/3 Ml) Ud) 2.5 mg IH Q6 PRN PRN Reason: Shortness of Breath Celecoxib (Celebrex) 200 mg PO Q12 [facility] Last Admin: 02/24/17 09:05 Dose: 200 mg Docusate Sodium (Colace) 200 mg PO DAILY [facility] Last Admin: 02/24/17 09:06 Dose: 200 mg Escitalopram Oxalate (Lexapro) 20 mg PO DAILY [facility] Last Admin: 02/24/17 09:08 Dose: 20 mg Lactulose (Enulose) 20 gm PO BID PRN PRN Reason: Constipation Last Admin: 02/20/17 12:20 Dose: 20 gm Metformin HCl (Glucophage) 1,000 mg PO BIDWM [facility] Last Admin: 02/24/17 17:30 Dose: 1,000 mg Metoprolol Tartrate (Lopressor) 25 mg PO DAILY [facility] Last Admin: 02/24/17 09:08 Dose: 25 mg Oxycodone/Acetaminophen (Percocet 5/325 Mg Tab) 1 tab PO Q6 PRN PRN Reason: Pain, moderate (4-7) Stop: 02/26/17 16:01 Last Admin: 02/24/17 15:07 Dose: 1 tab Pantoprazole Sodium (Protonix Ec Tab) 40 mg PO QAM [facility] Last Admin: 02/24/17 09:04 Dose: 40 mg Pioglitazone HCl (Actos) 15 mg PO DAILY [facility] Last Admin: 02/24/17 09:06 Dose: 15 mg Sitagliptin Phosphate (Januvia) 100 mg PO DAILY [facility] Last Admin: 02/24/17 09:07 Dose: 100 mg Valsartan (Diovan) 80 mg PO DAILY [facility] Last Admin: 02/24/17 09:04 Dose: 80 mg - Head Exam Head Exam: ATRAUMATIC, NORMAL INSPECTION, NORMOCEPHALIC - Eye Exam Eye Exam: EOMI, Normal appearance Pupil Exam: NORMAL ACCOMODATION, PERRL - ENT Exam ENT Exam: Normal Exam - Neck Exam Neck Exam: Normal Inspection - Respiratory Exam Respiratory Exam: NORMAL BREATHING PATTERN - Cardiovascular Exam Cardiovascular Exam: REGULAR RHYTHM - Rectal Exam Rectal Exam: NORMAL INSPECTION - Exam External exam: NORMAL EXTERNAL EXAM - Extremities Exam Extremities Exam: Normal Capillary Refill, Normal Inspection Additional comments: right knee improving range of motion - Back Exam Back Exam: NORMAL INSPECTION - Neurological Exam Neurological Exam: Alert, Awake, CN II-XII Intact Neuro motor strength exam: Left Upper Extremity: 4, Right Upper Extremity: 4, Left Lower Extremity: 4, Right Lower Extremity: 3 - Psychiatric Exam Psychiatric exam: Normal Affect, Normal Mood - Skin Skin Exam: Normal Color Assessment and Plan (1) Asthma exacerbation Status: Acute (2) Bronchitis Status: Acute (3) Hyperglycemia Status: Acute (4) Prophylactic measure Status: Acute (5) Status post total right knee replacement Assessment & Plan: plan for physical, occupational, Rom Strengthening transfers and gait training Status: Acute (6) URI (upper respiratory infection) Status: Acute (7) Diabetes type 2, controlled Status: Chronic (8) Hypertension Status: Chronic
--- NOTE | 2017-02-24 19:23 | CP.PCM.PN ---
Subjective - Date & Time of Evaluation Date of Evaluation: 02/24/17 Time of Evaluation: 12:00 - Subjective Subjective: mild knee discomfort no acute other complaints of pain Objective - Vital Signs/Intake and Output Vital Signs (last 24 hours): Temp Pulse Resp BP Pulse Ox 97.5 F L 84 20 116/62 97 02/24/17 18:16 02/24/17 18:16 02/24/17 18:16 02/24/17 18:16 02/24/17 18:16 - Medications Medications: Current Medications Acetaminophen (Tylenol 325mg Tab) 325 mg PO Q4 PRN PRN Reason: pain1-3 Albuterol Sulfate (Albuterol 0.083% Inhal Angelica (2.5 Mg/3 Ml) Ud) 2.5 mg IH Q6 PRN PRN Reason: Shortness of Breath Celecoxib (Celebrex) 200 mg PO Q12 [facility] Last Admin: 02/24/17 09:05 Dose: 200 mg Docusate Sodium (Colace) 200 mg PO DAILY [facility] Last Admin: 02/24/17 09:06 Dose: 200 mg Escitalopram Oxalate (Lexapro) 20 mg PO DAILY [facility] Last Admin: 02/24/17 09:08 Dose: 20 mg Lactulose (Enulose) 20 gm PO BID PRN PRN Reason: Constipation Last Admin: 02/20/17 12:20 Dose: 20 gm Metformin HCl (Glucophage) 1,000 mg PO BIDWM [facility] Last Admin: 02/24/17 17:30 Dose: 1,000 mg Metoprolol Tartrate (Lopressor) 25 mg PO DAILY [facility] Last Admin: 02/24/17 09:08 Dose: 25 mg Oxycodone/Acetaminophen (Percocet 5/325 Mg Tab) 1 tab PO Q6 PRN PRN Reason: Pain, moderate (4-7) Stop: 02/26/17 16:01 Last Admin: 02/24/17 15:07 Dose: 1 tab Pantoprazole Sodium (Protonix Ec Tab) 40 mg PO QAM [facility] Last Admin: 02/24/17 09:04 Dose: 40 mg Pioglitazone HCl (Actos) 15 mg PO DAILY [facility] Last Admin: 02/24/17 09:06 Dose: 15 mg Sitagliptin Phosphate (Januvia) 100 mg PO DAILY [facility] Last Admin: 02/24/17 09:07 Dose: 100 mg Valsartan (Diovan) 80 mg PO DAILY [facility] Last Admin: 02/24/17 09:04 Dose: 80 mg - Head Exam Head Exam: ATRAUMATIC, NORMAL INSPECTION, NORMOCEPHALIC - Eye Exam Eye Exam: EOMI, Normal appearance Pupil Exam: NORMAL ACCOMODATION, PERRL - ENT Exam ENT Exam: Mucous Membranes Moist, Normal Exam - Neck Exam Neck Exam: Normal Inspection - Respiratory Exam Respiratory Exam: Clear to Ausculation Bilateral, NORMAL BREATHING PATTERN - Cardiovascular Exam Cardiovascular Exam: REGULAR RHYTHM - GI/Abdominal Exam GI & Abdominal Exam: Soft, Normal Bowel Sounds - Rectal Exam Rectal Exam: NORMAL INSPECTION - Exam External exam: NORMAL EXTERNAL EXAM - Extremities Exam Extremities Exam: Normal Capillary Refill, Normal Inspection - Back Exam Back Exam: NORMAL INSPECTION Additional comments: right lower extremity weakness, other extremities within normal limits - Neurological Exam Neurological Exam: Alert Neuro motor strength exam: Left Upper Extremity: 4, Right Upper Extremity: 4, Left Lower Extremity: 4, Right Lower Extremity: 3 - Psychiatric Exam Psychiatric exam: Normal Affect, Normal Mood - Skin Skin Exam: Dry, Normal Color Assessment and Plan (1) Asthma exacerbation Status: Acute (2) Bronchitis Status: Acute (3) Hyperglycemia Status: Acute (4) Prophylactic measure Status: Acute (5) Status post total right knee replacement Assessment & Plan: continue with ambulation with walker, and improve Range of motion specially of the right knee continue with present therapy program, then consider for Dc planning equipment and additional outpatient therapy Status: Acute (6) URI (upper respiratory infection) Status: Acute (7) Diabetes type 2, controlled Status: Chronic (8) Hypertension Status: Chronic
[2017-02-25 08:14] VITALS: BP 125/74; PULSE 91; TEMP 97.9; O2SAT 100
[2017-02-25] MEDS: Pantoprazole 40 mg EC Tab PO SCH (08:42)
--- NOTE | 2017-02-25 09:57 | CP.PCM.PN ---
Subjective - Date & Time of Evaluation Date of Evaluation: 02/22/17 Time of Evaluation: 09:30 - Subjective Subjective: Patient is doing well Has no chest pain or SOB Afebrile Objective - Vital Signs/Intake and Output Vital Signs (last 24 hours): Temp Pulse Resp BP Pulse Ox 97.9 F 91 H 20 125/74 100 02/25/17 08:10 02/25/17 08:42 02/25/17 08:10 02/25/17 08:42 02/25/17 08:10 - Medications Medications: Current Medications Acetaminophen (Tylenol 325mg Tab) 325 mg PO Q4 PRN PRN Reason: pain1-3 Albuterol Sulfate (Albuterol 0.083% Inhal Angelica (2.5 Mg/3 Ml) Ud) 2.5 mg IH Q6 PRN PRN Reason: Shortness of Breath Celecoxib (Celebrex) 200 mg PO Q12 [facility] Last Admin: 02/25/17 08:41 Dose: 200 mg Docusate Sodium (Colace) 200 mg PO DAILY [facility] Last Admin: 02/25/17 08:41 Dose: 200 mg Escitalopram Oxalate (Lexapro) 20 mg PO DAILY [facility] Last Admin: 02/25/17 08:41 Dose: 20 mg Ibuprofen (Motrin Tab) 600 mg PO Q8 PRN PRN Reason: Pain, moderate (4-7) Last Admin: 02/25/17 06:20 Dose: 600 mg Lactulose (Enulose) 20 gm PO BID PRN PRN Reason: Constipation Last Admin: 02/20/17 12:20 Dose: 20 gm Metformin HCl (Glucophage) 1,000 mg PO BIDWM [facility] Last Admin: 02/25/17 08:42 Dose: 1,000 mg Metoprolol Tartrate (Lopressor) 25 mg PO DAILY [facility] Last Admin: 02/25/17 08:42 Dose: 25 mg Pantoprazole Sodium (Protonix Ec Tab) 40 mg PO QAM [facility] Last Admin: 02/25/17 08:42 Dose: 40 mg Pioglitazone HCl (Actos) 15 mg PO DAILY [facility] Last Admin: 02/25/17 08:43 Dose: 15 mg Sitagliptin Phosphate (Januvia) 100 mg PO DAILY [facility] Last Admin: 02/25/17 08:42 Dose: 100 mg Valsartan (Diovan) 80 mg PO DAILY [facility] Last Admin: 02/25/17 08:42 Dose: 80 mg - Head Exam Head Exam: NORMAL INSPECTION - Eye Exam Eye Exam: Normal appearance - ENT Exam ENT Exam: Mucous Membranes Moist - Respiratory Exam Respiratory Exam: Clear to Ausculation Bilateral - Cardiovascular Exam Cardiovascular Exam: REGULAR RHYTHM - GI/Abdominal Exam GI & Abdominal Exam: Soft, Normal Bowel Sounds - Neurological Exam Neurological Exam: CN II-XII Intact, Oriented x3 - Psychiatric Exam Psychiatric exam: Normal Mood Assessment and Plan (1) Status post total right knee replacement Status: Acute (2) Gait abnormality Status: Acute (3) Diabetes type 2, controlled Status: Chronic (4) Hypertension Status: Chronic - Assessment and Plan (Free Text) Plan: Con tmeds Con ttx cont pt
--- NOTE | 2017-02-25 09:58 | CP.PCM.PN ---
Subjective - Date & Time of Evaluation Date of Evaluation: 02/23/17 Time of Evaluation: 09:20 - Subjective Subjective: patient has been doing well Has no chest pain or SOB Afebrile. Objective - Vital Signs/Intake and Output Vital Signs (last 24 hours): Temp Pulse Resp BP Pulse Ox 97.9 F 91 H 20 125/74 100 02/25/17 08:10 02/25/17 08:42 02/25/17 08:10 02/25/17 08:42 02/25/17 08:10 - Medications Medications: Current Medications Acetaminophen (Tylenol 325mg Tab) 325 mg PO Q4 PRN PRN Reason: pain1-3 Albuterol Sulfate (Albuterol 0.083% Inhal Angelica (2.5 Mg/3 Ml) Ud) 2.5 mg IH Q6 PRN PRN Reason: Shortness of Breath Celecoxib (Celebrex) 200 mg PO Q12 [facility] Last Admin: 02/25/17 08:41 Dose: 200 mg Docusate Sodium (Colace) 200 mg PO DAILY [facility] Last Admin: 02/25/17 08:41 Dose: 200 mg Escitalopram Oxalate (Lexapro) 20 mg PO DAILY [facility] Last Admin: 02/25/17 08:41 Dose: 20 mg Ibuprofen (Motrin Tab) 600 mg PO Q8 PRN PRN Reason: Pain, moderate (4-7) Last Admin: 02/25/17 06:20 Dose: 600 mg Lactulose (Enulose) 20 gm PO BID PRN PRN Reason: Constipation Last Admin: 02/20/17 12:20 Dose: 20 gm Metformin HCl (Glucophage) 1,000 mg PO BIDWM [facility] Last Admin: 02/25/17 08:42 Dose: 1,000 mg Metoprolol Tartrate (Lopressor) 25 mg PO DAILY [facility] Last Admin: 02/25/17 08:42 Dose: 25 mg Pantoprazole Sodium (Protonix Ec Tab) 40 mg PO QAM [facility] Last Admin: 02/25/17 08:42 Dose: 40 mg Pioglitazone HCl (Actos) 15 mg PO DAILY [facility] Last Admin: 02/25/17 08:43 Dose: 15 mg Sitagliptin Phosphate (Januvia) 100 mg PO DAILY [facility] Last Admin: 02/25/17 08:42 Dose: 100 mg Valsartan (Diovan) 80 mg PO DAILY [facility] Last Admin: 02/25/17 08:42 Dose: 80 mg - Head Exam Head Exam: NORMAL INSPECTION - Eye Exam Eye Exam: Normal appearance - ENT Exam ENT Exam: Mucous Membranes Moist - Respiratory Exam Respiratory Exam: Clear to Ausculation Bilateral - Cardiovascular Exam Cardiovascular Exam: REGULAR RHYTHM - GI/Abdominal Exam GI & Abdominal Exam: Normal Bowel Sounds Assessment and Plan (1) Status post total right knee replacement Status: Acute (2) Gait abnormality Status: Acute (3) Diabetes type 2, controlled Status: Chronic (4) Hypertension Status: Chronic - Assessment and Plan (Free Text) Plan: cont meds Con ttx Cont PT
--- NOTE | 2017-02-25 10:00 | CP.PCM.PN ---
Subjective - Date & Time of Evaluation Date of Evaluation: 02/24/17 Time of Evaluation: 10:00 - Subjective Subjective: Patient is doing better with PT Has no chest pain or SOB afebrile. Objective - Vital Signs/Intake and Output Vital Signs (last 24 hours): Temp Pulse Resp BP Pulse Ox 97.9 F 91 H 20 125/74 100 02/25/17 08:10 02/25/17 08:42 02/25/17 08:10 02/25/17 08:42 02/25/17 08:10 - Medications Medications: Current Medications Acetaminophen (Tylenol 325mg Tab) 325 mg PO Q4 PRN PRN Reason: pain1-3 Albuterol Sulfate (Albuterol 0.083% Inhal Angelica (2.5 Mg/3 Ml) Ud) 2.5 mg IH Q6 PRN PRN Reason: Shortness of Breath Celecoxib (Celebrex) 200 mg PO Q12 [facility] Last Admin: 02/25/17 08:41 Dose: 200 mg Docusate Sodium (Colace) 200 mg PO DAILY [facility] Last Admin: 02/25/17 08:41 Dose: 200 mg Escitalopram Oxalate (Lexapro) 20 mg PO DAILY [facility] Last Admin: 02/25/17 08:41 Dose: 20 mg Ibuprofen (Motrin Tab) 600 mg PO Q8 PRN PRN Reason: Pain, moderate (4-7) Last Admin: 02/25/17 06:20 Dose: 600 mg Lactulose (Enulose) 20 gm PO BID PRN PRN Reason: Constipation Last Admin: 02/20/17 12:20 Dose: 20 gm Metformin HCl (Glucophage) 1,000 mg PO BIDWM [facility] Last Admin: 02/25/17 08:42 Dose: 1,000 mg Metoprolol Tartrate (Lopressor) 25 mg PO DAILY [facility] Last Admin: 02/25/17 08:42 Dose: 25 mg Pantoprazole Sodium (Protonix Ec Tab) 40 mg PO QAM [facility] Last Admin: 02/25/17 08:42 Dose: 40 mg Pioglitazone HCl (Actos) 15 mg PO DAILY [facility] Last Admin: 02/25/17 08:43 Dose: 15 mg Sitagliptin Phosphate (Januvia) 100 mg PO DAILY [facility] Last Admin: 02/25/17 08:42 Dose: 100 mg Valsartan (Diovan) 80 mg PO DAILY [facility] Last Admin: 02/25/17 08:42 Dose: 80 mg - Head Exam Head Exam: NORMAL INSPECTION - Eye Exam Eye Exam: Normal appearance - ENT Exam ENT Exam: Mucous Membranes Moist - Respiratory Exam Respiratory Exam: Clear to Ausculation Bilateral - Cardiovascular Exam Cardiovascular Exam: REGULAR RHYTHM - GI/Abdominal Exam GI & Abdominal Exam: Normal Bowel Sounds - Neurological Exam Neurological Exam: Awake, Oriented x3 Assessment and Plan (1) Status post total right knee replacement Status: Acute (2) Gait abnormality Status: Acute (3) Diabetes type 2, controlled Status: Chronic (4) Hypertension Status: Chronic - Assessment and Plan (Free Text) Plan: con tmeds cont tx cont PT
--- NOTE | 2017-02-25 10:01 | CP.PCM.DIS ---
Provider - Provider Date of Admission: 02/19/17 11:39 Attending physician: Terry Guzman MD Primary care physician: Adi Rao MD Time Spent in preparation of Discharge (in minutes): 30 Diagnosis - Discharge Diagnosis (1) Status post total right knee replacement Status: Acute (2) Gait abnormality Status: Acute (3) Diabetes type 2, controlled Status: Chronic Priority: Medium (4) Hypertension Status: Chronic Priority: Medium Hospital Course - Lab Results Lab Results: Most Recent Lab Values POC Glucose (mg/dL) 220 mg/dL (65-110) H 02/25/17 06:13 - Hospital Course Hospital Course: This is a 61 y/o male admitted for rehab after a right TKR. Post op period was unremarkable Has no chest pain or SOB. Discharge Exam - Head Exam Head Exam: NORMAL INSPECTION - Eye Exam Eye Exam: Normal appearance - Respiratory Exam Respiratory Exam: NORMAL BREATHING PATTERN - Cardiovascular Exam Cardiovascular Exam: REGULAR RHYTHM - GI/Abdominal Exam GI & Abdominal Exam: Normal Bowel Sounds - Neurological Exam Neurological exam: CN II-XII Intact, Oriented x3 - Psychiatric Exam Psychiatric exam: Normal Mood Discharge Plan - Follow Up Plan Condition: GOOD Disposition: HOME/ ROUTINE Additional Instructions: Rx given for pain PT. advised follow up with PMD and Dr Chinchilla. Referrals: Adi Rao MD [Primary Care Provider] -
== END 2017-02-25 14:45 | disposition home health service (06) | DRG 560 ==
LOC: H.TCU 02-19 11:39
PROVIDERS: ADMIT Family Medicine; ATTEND Family Medicine
PROC: F07Z9FZ Gait Training/Functional Ambulation Treatment using Assistive, Adaptive, Supportive or Protective Equipment (ICD-10-PCS; principal; 2017-02-19)
PROC: F08Z4FZ Home Management Treatment using Assistive, Adaptive, Supportive or Protective Equipment (ICD-10-PCS; 2017-02-19)
PROC: F07L6FZ Therapeutic Exercise Treatment of Musculoskeletal System - Lower Back / Lower Extremity using Assistive, Adaptive, Supportive or Protective Equipment (ICD-10-PCS; 2017-02-20)
DX: Z47.1 Aftercare following joint replacement surgery (principal); R26.89 Other abnormalities of gait and mobility; M17.11 Unilateral primary osteoarthritis, right knee; Z96.653 Presence of artificial knee joint, bilateral; J45.901 Unspecified asthma with (acute) exacerbation; E11.65 Type 2 diabetes mellitus with hyperglycemia; I10 Essential (primary) hypertension; E78.00 Pure hypercholesterolemia, unspecified; J44.9 Chronic obstructive pulmonary disease, unspecified; J06.9 Acute upper respiratory infection, unspecified